=== PATIENT | male | born 1995 | race Caucasian/White ===

== ENCOUNTER 2016-10-09 20:57 | Emergency (ER) | payer SELFPAY ==
[2016-10-09] MEDS ORDERED: Sodium Chloride 0.9% 10 ML Syringe FLUSH PRN (21:15)
[2016-10-09] MEDS ORDERED: Ondansetron 4 MG/2 ML SDV IVPUSH ONE (21:15)
[2016-10-09] MEDS ORDERED: Sodium Chloride 0.9% 2.5 ML Syringe FLUSH PRN (21:15)
[2016-10-09] MEDS ORDERED: Sodium Chloride 0.9% 1,000 ML IV ONE (21:15)
[2016-10-09] MEDS ORDERED: Ketorolac 30 MG/ML SDV IVPUSH ONE (21:15)
--- NOTE | 2016-10-09 21:20 | EDM.PDOC ---
ED HPI GENERAL MEDICAL PROBLEM - General Chief Complaint: Abdominal Pain Stated Complaint: STOMACH PAIN/KIDNEY Time Seen by Provider: 10/09/16 21:04 - History of Present Illness INITIAL COMMENTS - FREE TEXT/NARRATIVE: HISTORY AND PHYSICAL: History of present illness: The patient is a 21-year-old male who presents with a one-week history of left lower abdominal pain that has been waxing and waning in intensity but has been constant and also some bilateral lower back pain over the last 4 days. Patient has a long-standing history of chronic constipation and does not go on a regular basis and has seen GI in the past and had a colonoscopy several years ago. His father has a history of Crohn's disease but he was not diagnosed with any IBS syndromes. The patient states that a week ago he was having upper respiratory symptoms and flulike symptoms including bodyaches cough runny nose and feverish feelings but did not have vomiting or diarrhea with that. The patient states he has not had a bowel movement for at least 2 days and one episode of vomiting today. Patient says he drinks a lot of caffeine and has a history of an appendectomy. Patient states he has had trouble with his kidneys in the past and says that there is some discomfort with urination but does not have any specific flank pain or upper abdominal pain. He has currently some feverish feelings but no documented fever no chills no cough no chest pain or shortness of breath. He denies any testicular pain or swelling or any hernial swellings in the groin area. Patient did not take anything for the pain or the nausea prior to coming here. The patient did take ex-lax approximately 24-36 hours ago and did not have any output. Patient denies any hematuria or frequency and denies STD risks. He states that his lower back pain is more achy in character and is not localize right or left it does not radiate to his legs and has no bowel or bladder disturbances from this Review of systems: As per history of present illness and below otherwise all systems reviewed and negative. Past medical history: As per history of present illness and as reviewed below otherwise noncontributory. Surgical history: As per history of present illness and as reviewed below otherwise noncontributory. Social history: No reported history of drug or alcohol abuse. Family history: As per history of present illness and as reviewed below otherwise noncontributory. Physical exam: General: Well-developed well-nourished man who is thin and nontoxic moves easily in ED without distress. HEENT: Atraumatic, normocephalic, pupils reactive, negative for conjunctival pallor or scleral icterus, mucous membranes moist, throat clear, neck supple, nontender, trachea midline. Lungs: Clear to auscultation, breath sounds equal bilaterally, chest nontender. Heart: S1S2, regular, negative for clicks, rubs, or JVD. Abdomen: Soft, nondistended, bowel sounds are hypoactive and there is tenderness in the left lower abdominal area without rebound or guarding. Negative for masses or hepatosplenomegaly. Negative for costovertebral tenderness. Pelvis: Stable nontender. Genitourinary: Deferred. Rectal: Deferred. Extremities: Atraumatic, negative for cords or calf pain. Neurovascular unremarkable. Neuro: Awake, alert, oriented. Cranial nerves II through XII unremarkable. Cerebellum unremarkable. Motor and sensory unremarkable throughout. Exam nonfocal. Back: There are no midline step-offs tenderness defects of the thoracic or lumbar spine no CVA tenderness and some mild paraspinal muscle tenderness to palpation bilateral lumbar areas Diagnostics: CBC CMP amylase lipase UA CT scan of the abdomen and pelvis Therapeutics: IV fluids Zofran Toradol Bentyl Patient is feeling somewhat better. I discussed with him and family at bedside all testing results including the incidental pulmonary nodules. I recommended follow up with family and possible GI specialist and I will give Bentammon for home as well as here in the ER. I've also advised patient on dietary management including avoiding caffeinated products and trying to eat more fiber foods and using [id number] MiraLAX for the next 5-7 days. Advised patient on need to return to the ER and importance of followup. Impression: Left lower abdominal pain with history of constipation stable Definitive disposition and diagnosis as appropriate pending reevaluation and review of above. abdominal Pain Score (Numeric/FACES): 5 headache Pain Score (Numeric/FACES): 8 - Related Data Allergies Allergy/AdvReac Type Severity Reaction Status Date / Time lactose Allergy Other Verified 10/09/16 21:00 Home Meds: Home Meds . [No Known Home Meds] 10/09/16 [History] ED ROS GENERAL - Review of Systems Review Of Systems: ROS reveals no pertinent complaints other than HPI. ED EXAM, GENERAL - Physical Exam Exam: See Below (See dictation) Course - Vital Signs Last Recorded V/S: Last Vital Signs Temp 37.6 C 10/09/16 21:42 Pulse 75 10/09/16 21:42 Resp 16 10/09/16 21:42 BP 101/63 10/09/16 21:42 Pulse Ox 97 10/09/16 21:42 - Orders/Labs/Meds Orders: Active Orders 24 hr Category Date Time Status Abdomen Pelvis w wo Cont [CT] Stat Exams 10/09/16 21:15 Taken Sodium Chloride 0.9% [Saline Flush] Med 10/09/16 21:15 Active 10 ml FLUSH ASDIRECTED PRN Sodium Chloride 0.9% [Saline Flush] Med 10/09/16 21:15 Active 2.5 ml FLUSH ASDIRECTED PRN Saline Lock Insert [OM.PC] Stat Oth 10/09/16 21:14 Ordered Medication Orders Sodium Chloride (Saline Flush) 10 ml FLUSH ASDIRECTED PRN PRN Reason: Keep Vein Open Sodium Chloride (Saline Flush) 2.5 ml FLUSH ASDIRECTED PRN PRN Reason: Keep Vein Open Labs: Laboratory Tests 10/09/16 10/09/16 10/09/16 Range/Units 21:05 21:05 21:26 WBC 6.09 (4.0-11.0) K/uL RBC 4.75 (4.50-5.90) M/uL Hgb 14.6 (13.0-17.0) g/dL Hct 41.5 (38.0-50.0) % MCV 87.4 (80.0-98.0) fL MCH 30.7 (27.0-32.0) pg MCHC 35.2 (31.0-37.0) g/dL RDW Std Deviation 40.3 (28.0-62.0) fl RDW Coeff of Dick 13 (11.0-15.0) % Plt Count 179 (150-400) K/uL MPV 8.90 (7.40-12.00) fL Neut % (Auto) 47.2 L (48.0-80.0) % Lymph % (Auto) 40.1 H (16.0-40.0) % [place] % (Auto) 7.1 (0.0-15.0) % Eos % (Auto) 5.3 (0.0-7.0) % Baso % (Auto) 0.3 (0.0-1.5) % Neut # 2.9 (1.4-5.7) K/uL Lymph # 2.4 (0.6-2.4) K/uL [place] # 0.4 (0.0-0.8) K/uL Eos # 0.3 (0.0-0.7) K/uL Baso # 0.0 (0.0-0.1) K/uL Nucleated RBC % 0.0 /100WBC Nucleated RBCs # 0 K/uL Sodium 142 (136-146) mmol/L Potassium 3.9 (3.5-5.1) mmol/L Chloride 106 (98-110) mmol/L Carbon Dioxide 27 (21-31) mmol/L BUN 14 (6.0-23.0) mg/dL Creatinine 1.0 (0.6-1.5) mg/dL Est Cr Clr Drug Dosing 108.09 mL/min Estimated GFR (MDRD) > 60.0 ml/min Glucose 94 (60-110) mg/dL Calcium 9.1 (8.8-10.8) mg/dL Total Bilirubin 0.6 (0.1-1.5) mg/dL AST 33 (5-40) IU/L ALT 49 (8-54) IU/L Alkaline Phosphatase 102 (40-150) Total Protein 7.1 (6.0-8.0) g/dL Albumin 4.5 (3.5-5.0) g/dL Globulin 2.6 (2.0-3.5) g/dL Albumin/Globulin Ratio 1.7 (1.3-2.8) Amylase 38 (10-90) U/L Lipase 31 (7-80) U/L Urine Color YELLOW Urine Appearance SLT CLOUDY Urine pH 8.0 (5.0-8.0) Ur Specific [place] 1.015 (1.001-1.035) Urine Protein NEGATIVE (NEGATIVE) mg/dL Urine Glucose (UA) NEGATIVE (NEGATIVE) mg/dL Urine Ketones NEGATIVE (NEGATIVE) mg/dL Urine Occult Blood NEGATIVE (NEGATIVE) Urine Nitrite NEGATIVE (NEGATIVE) Urine Bilirubin NEGATIVE (NEGATIVE) Urine Urobilinogen 0.2 (<2.0) EU/dL Ur Leukocyte Esterase TRACE (NEGATIVE) Urine RBC NONE SEEN (0-2/HPF) Urine WBC 0-2 (0-5/HPF) Ur Epithelial Cells RARE (NONE-FEW) Amorphous Sediment MODERATE (NEGATIVE) Urine Bacteria FEW (NEGATIVE) Meds: Medications Generic Name Dose Route Start Last Admin Trade Name Rocky PRN Reason Stop Dose Admin Sodium Chloride 10 ml 10/09/16 21:15 Saline Flush FLUSH ASDIRECTED PRN Keep Vein Open Sodium Chloride 2.5 ml 10/09/16 21:15 Saline Flush FLUSH ASDIRECTED PRN Keep Vein Open Discontinued Medications Generic Name Dose Route Start Last Admin Trade Name Jonyq PRN Reason Stop Dose Admin Dicyclomine HCl 10 mg 10/09/16 22:40 Bentyl PO 10/09/16 22:41 ONETIME ONE Sodium Chloride 1,000 mls @ 999 mls/hr 10/09/16 21:15 10/09/16 21:38 Normal Saline IV 10/09/16 22:15 999 mls/hr STAT ONE Administration Iopamidol 100 ml 10/09/16 21:23 Isovue Multipack-370 (76%) IVPUSH 10/09/16 21:24 ONETIME STA Ketorolac Tromethamine 30 mg 10/09/16 21:15 10/09/16 21:28 Toradol IVPUSH 10/09/16 21:16 30 mg ONETIME ONE Administration Ondansetron HCl 4 mg 10/09/16 21:15 10/09/16 21:34 Zofran IVPUSH 10/09/16 21:16 4 mg ONETIME ONE Administration Departure - Departure Time of Disposition: 22:44 Disposition: Home, Self-Care 01 Condition: good Clinical Impression: Abdominal pain Qualifiers: Abdominal location: left lower quadrant Qualified Code(s): R10.32 - Left lower quadrant pain Forms: ED Department Discharge Additional Instructions: The following information is given to patients seen in the emergency department who are being discharged to home. This information is to outline your options for follow-up care. We provide all patients seen in our emergency department with a follow-up referral. The need for follow-up, as well as the timing and circumstances, are variable depending upon the specifics of your emergency department visit. If you don't have a primary care physician on staff, we will provide you with a referral. We always advise you to contact your personal physician following an emergency department visit to inform them of the circumstance of the visit and for follow-up with them and/or the need for any referrals to a consulting specialist. The emergency department will also refer you to a specialist when appropriate. This referral assures that you have the opportunity for followup care with a specialist. All of these measure are taken in an effort to provide you with optimal care, which includes your followup. Under all circumstances we always encourage you to contact your private physician who remains a resource for coordinating your care. When calling for followup care, please make the office aware that this follow-up is from your recent emergency room visit. If for any reason you are refused follow-up, please contact the [facility] emergency department at and ask to speak to the emergency department charge nurse. [facility] Primary care- Internal Medicine and Family [address] [address] Please push hydration and avoid caffeinated products as well as fast foods and junk foods spicy and fatty foods. Please push fiber rich foods as we discussed and use Bentyl as needed for discomfort. Please call and followup with primary care for further evaluation and treatment and return to the ER as needed and as discussed. Please also use [id number] MiraLAX once a day for the next 5 days and thereafter as needed. - My Orders Last 24 Hours: My Active Orders 10/09/16 21:14 Saline Lock Insert [OM.PC] Stat 10/09/16 21:15 Abdomen Pelvis w wo Cont [CT] Stat Sodium Chloride 0.9% [Saline Flush] 10 ml FLUSH ASDIRECTED PRN Sodium Chloride 0.9% [Saline Flush] 2.5 ml FLUSH ASDIRECTED PRN - Assessment/Plan Last 24 Hours: My Active Orders 10/09/16 21:14 Saline Lock Insert [OM.PC] Stat 10/09/16 21:15 Abdomen Pelvis w wo Cont [CT] Stat Sodium Chloride 0.9% [Saline Flush] 10 ml FLUSH ASDIRECTED PRN Sodium Chloride 0.9% [Saline Flush] 2.5 ml FLUSH ASDIRECTED PRN
[2016-10-09] MEDS ORDERED: Iopamidol 755 MG/ML 500 ML Multipack Bottle IVPUSH STA (21:23)
[2016-10-09 21:39] LABS: CHLORIDE,CL 106 mmol/L (98-110); SODIUM,NA 142 mmol/L (136-146)
[2016-10-09] MEDS ORDERED: Dicyclomine 10 MG Cap PO ONE (22:40)
[2016-10-09 23:06] VITALS: BP 108/75
--- NOTE | 2016-10-12 16:46 | CT ---
EXAM DATE: 10/09/16 PATIENT'S AGE: 21 Patient: FREDY MAY Facility: [place], [place] Site . Site : 1995 Study: CT Abdomen/Pelvis [id number]/13/2017 10:11:09 PM Ordering Physician: Xochitl Lindsay Final Report: INDICATION: Left lower quadrant pain TECHNIQUE: CT abdomen and pelvis acquired without and with IV contrast. COMPARISON: None available FINDINGS: Lower chest: A 5 millimeter left lower lobe perivascular nodule on image 22, a 4 millimeter right lower lobe nodule on image 12 and a 2- 3 millimeter right lower lobe nodule on image 22, likely post inflammatory in a patient of this age. Liver: A tiny posterior right hepatic low-density lesion on image 31, too small to characterize, statistically a small cyst. Spleen: Unremarkable. Pancreas: Unremarkable. Gallbladder and bile ducts: Unremarkable. Adrenal glands: Unremarkable. Kidneys: Unremarkable. GI tract: No bowel obstruction. The appendix is not seen and there are no findings of appendicitis. No significant pericolonic changes. Vascular structures: Unremarkable. Lymph nodes: Unremarkable. Miscellaneous: Small free fluid in the posteroinferior pelvis. No free air. Pelvic Organs: Slight bladder wall prominence versus incomplete distention. Grossly unremarkable prostate. Bones: Unremarkable for age. IMPRESSION: No evidence of appendicitis, diverticulitis or bowel obstruction. Small pelvic free fluid, nonspecific. Slight bladder wall prominence versus underdistention. Correlate with urinalysis. Pulmonary nodular opacities, likely post inflammatory in a patient of this age without history of neoplasm. A 12 month followup examination could be obtained to ensure stability. Dictated by Devan Guajardo MD @ 10/09/2016 10:26:39 PM Dictated by: Devan Guajardo MD @ 10/09/2016 22:26:46 (Electronic Signature) Report Signed by Proxy and Original Signed Document filed in the Medical Record. [facility]
== END 2016-10-09 23:06 | disposition home or self-care (01) ==
LOC: MW.ED 20:57
DX: R10.32 Left lower quadrant pain (principal); M54.5 Low back pain; R05 Cough
CPT/HCPCS: 74178; 80053; 81001; 82150; 83690; 85025; 96361; 96374; 96375; 99284; A9270; J1885; J2405; J7040; Q9967

== ENCOUNTER 2017-02-22 21:20 | Emergency (ER) | payer MEDICAID ==
[2017-02-22] MEDS ORDERED: Ketorolac 30 MG/ML SDV IVPUSH ONE (21:41)
[2017-02-22] MEDS ORDERED: Sodium Chloride 0.9% 1,000 ML IV ONE (21:41)
[2017-02-22] MEDS ORDERED: Sodium Chloride 0.9% 2.5 ML Syringe FLUSH PRN (21:41)
[2017-02-22] MEDS ORDERED: Sodium Chloride 0.9% 10 ML Syringe FLUSH PRN (21:41)
[2017-02-22] MEDS ORDERED: Ondansetron 4 MG/2 ML SDV IVPUSH ONE (21:41)
--- NOTE | 2017-02-22 21:46 | EDM.PDOC ---
ED HPI GENERAL MEDICAL PROBLEM - General Chief Complaint: General Stated Complaint: POSSIBLE KIDNEY STONES/VOMITING Time Seen by Provider: 02/22/17 21:26 - History of Present Illness INITIAL COMMENTS - FREE TEXT/NARRATIVE: HISTORY AND PHYSICAL: History of present illness: The patient is a 21-year-old male who presents with right lower quadrant discomfort which is improved after receiving Ultram from one of our local clinics a few days ago but presents tonight with vomiting and feeling like he is dehydrated. According to the patient he was seen at the outside clinic several days ago with left lower quadrant pain and they did an x-ray and a urine test and said that he might be passing a kidney stone. The patient has no history of kidney stones. The patient was seen by me in this emergency department October 13 of this year and presented with similar complaints of left lower quadrant pain and had a workup consisting of labs and a CAT scan. The CAT scan results were reviewed by me which revealed no evidence of any bowel disorders and no renal abnormalities or kidney stones. The patient states that the Ultram is controlling his pain and he is not here for that he is more here because of concern about dehydration and vomiting. He has had no fever or flank pain no chest pain or shortness of breath. When seen here back in September the patient had issues with constipation and a history of issues as well as a family history of Crohn's but he does not complain of constipation currently nor diarrhea. He's having bowel movements without issues. Review of systems: As per history of present illness and below otherwise all systems reviewed and negative. Past medical history: As per history of present illness and as reviewed below otherwise noncontributory. Surgical history: As per history of present illness and as reviewed below otherwise noncontributory. Social history: No reported history of drug or alcohol abuse. Family history: As per history of present illness and as reviewed below otherwise noncontributory. Physical exam: General: Well-developed well-nourished man who is nontoxic in clearly and easily in the ED. Vital signs have been reviewed by me HEENT: Atraumatic, normocephalic, pupils reactive, negative for conjunctival pallor or scleral icterus, mucous membranes tacky, throat clear, neck supple, nontender, trachea midline. Lungs: Clear to auscultation, breath sounds equal bilaterally, chest nontender. Heart: S1S2, regular, negative for clicks, rubs, or JVD. Abdomen: Soft, nondistended, nontender. Bowel sounds are very hypoactive but there is no rebound guarding or tenderness on palpation Negative for masses or hepatosplenomegaly. Negative for costovertebral tenderness. Pelvis: Stable nontender. Genitourinary: Deferred. Rectal: Deferred. Extremities: Atraumatic, negative for cords or calf pain. Neurovascular unremarkable. Neuro: Awake, alert, oriented. Cranial nerves II through XII unremarkable. Cerebellum unremarkable. Motor and sensory unremarkable throughout. Exam nonfocal. Diagnostics CBC CMP UA urine culture if indicated Therapeutics: IV fluids Zofran Toradol Patient feels improved after IV fluids and I reviewed all testing results with him. At this point I will not proceed to get another CAT scan as he has just had one recently in September and he clearly is not exhibiting definitive evidence of a kidney stone. I've advised him on reasons to return to the ED. He states he has a prescription for Zofran as well as the Ultram. Impression: Nausea and vomiting, left lower abdominal pain stable Definitive disposition and diagnosis as appropriate pending reevaluation and review of above. Bilateral Lower Abdomen Pain Score (Numeric/FACES): 5 - Related Data Allergies Allergy/AdvReac Type Severity Reaction Status Date / Time lactose Allergy Other Verified 02/22/17 21:25 Home Meds: Home Meds traMADol [Ultram] 50 mg PO Q4HR PRN 02/22/17 [History] Past Medical History HEENT History: Reports: None Cardiovascular History: Reports: None Respiratory History: Reports: None Gastrointestinal History: Reports: GERD Genitourinary History: Reports: None Musculoskeletal History: Reports: None Neurological History: Reports: None Psychiatric History: Reports: None Endocrine/Metabolic History: Reports: None Hematologic History: Reports: None Immunologic History: Reports: None Oncologic (Cancer) History: Reports: None Dermatologic History: Reports: None - Infectious Disease History Infectious Disease History: Reports: None - Past Surgical History Head Surgeries/Procedures: Reports: None HEENT Surgical History: Reports: None Cardiovascular Surgical History: Reports: None GI Surgical History: Reports: Appendectomy, Hernia, Inguinal Male Surgical History: Reports: None Musculoskeletal Surgical History: Reports: None Social & Family History - Family History Family Medical History: Noncontributory Cardiac: Reports: Other (See Below) Other Cardiac Family History: heart problems Respiratory: Reports: None GI: Reports: None, Other (See Below) Other GI Family History: chrons - Tobacco Use Smoking Status *Q: Current Every Day Smoker Years of Tobacco use: 3 Packs/Tins Daily: 0.5 - Caffeine Use Caffeine Use: Reports: Soda - Recreational Drug Use Recreational Drug Use: No ED ROS GENERAL - Review of Systems Review Of Systems: ROS reveals no pertinent complaints other than HPI. ED EXAM, GENERAL - Physical Exam Exam: See Below (See dictation) Course - Vital Signs Last Recorded V/S: Last Vital Signs Temp 35.9 C 02/22/17 21:27 Pulse 71 02/22/17 21:27 Resp 17 02/22/17 21:27 BP 133/84 02/22/17 21:27 Pulse Ox 100 02/22/17 21:27 - Orders/Labs/Meds Orders: Active Orders 24 hr Category Date Time Status Sodium Chloride 0.9% [Saline Flush] Med 02/22/17 21:41 Active 10 ml FLUSH ASDIRECTED PRN Sodium Chloride 0.9% [Saline Flush] Med 02/22/17 21:41 Active 2.5 ml FLUSH ASDIRECTED PRN Saline Lock Insert [OM.PC] Stat Oth 02/22/17 21:40 Ordered Medication Orders Sodium Chloride (Saline Flush) 10 ml FLUSH ASDIRECTED PRN PRN Reason: Keep Vein Open Sodium Chloride (Saline Flush) 2.5 ml FLUSH ASDIRECTED PRN PRN Reason: Keep Vein Open Labs: Laboratory Tests 02/22/17 02/22/17 02/22/17 Range/Units 21:42 21:42 22:12 WBC 8.18 (4.0-11.0) K/uL RBC 4.98 (4.50-5.90) M/uL Hgb 15.4 (13.0-17.0) g/dL Hct 43.6 (38.0-50.0) % MCV 87.6 (80.0-98.0) fL MCH 30.9 (27.0-32.0) pg MCHC 35.3 (31.0-37.0) g/dL RDW Std Deviation 39.0 (28.0-62.0) fl RDW Coeff of Dick 12 (11.0-15.0) % Plt Count 187 (150-400) K/uL MPV 8.90 (7.40-12.00) fL Neut % (Auto) 57.8 (48.0-80.0) % Lymph % (Auto) 28.6 (16.0-40.0) % Arroyo % (Auto) 9.0 (0.0-15.0) % Eos % (Auto) 4.2 (0.0-7.0) % Baso % (Auto) 0.4 (0.0-1.5) % Neut # (Auto) 4.7 (1.4-5.7) K/uL Lymph # (Auto) 2.3 (0.6-2.4) K/uL Arroyo # (Auto) 0.7 (0.0-0.8) K/uL Eos # (Auto) 0.3 (0.0-0.7) K/uL Baso # (Auto) 0.0 (0.0-0.1) K/uL Nucleated RBC % 0.0 /100WBC Nucleated RBCs # 0 K/uL Sodium 140 (136-146) mmol/L Potassium 3.4 L (3.5-5.1) mmol/L Chloride 100 (98-110) mmol/L Carbon Dioxide 29 (21-31) mmol/L BUN 10 (6.0-23.0) mg/dL Creatinine 1.0 (0.6-1.5) mg/dL Est Cr Clr Drug Dosing 97.51 mL/min Estimated GFR (MDRD) > 60.0 ml/min Glucose 87 (60-110) mg/dL Calcium 9.5 (8.8-10.8) mg/dL Total Bilirubin 0.8 (0.1-1.5) mg/dL AST 24 (5-40) IU/L ALT 21 (8-54) IU/L Alkaline Phosphatase 100 (40-150) Total Protein 7.4 (6.0-8.0) g/dL Albumin 4.8 (3.5-5.0) g/dL Globulin 2.6 (2.0-3.5) g/dL Albumin/Globulin Ratio 1.8 (1.3-2.8) Urine Color YELLOW Urine Appearance CLEAR Urine pH 6.0 (5.0-8.0) Ur Specific Weare 1.025 (1.001-1.035) Urine Protein NEGATIVE (NEGATIVE) mg/dL Urine Glucose (UA) NEGATIVE (NEGATIVE) mg/dL Urine Ketones NEGATIVE (NEGATIVE) mg/dL Urine Occult Blood NEGATIVE (NEGATIVE) Urine Nitrite NEGATIVE (NEGATIVE) Urine Bilirubin NEGATIVE (NEGATIVE) Urine Urobilinogen 0.2 (<2.0) EU/dL Ur Leukocyte Esterase NEGATIVE (NEGATIVE) Urine RBC 0-1 (0-2/HPF) Urine WBC 1-4 (0-5/HPF) Ur Epithelial Cells RARE (NONE-FEW) Urine Bacteria RARE (NEGATIVE) Meds: Medications Generic Name Dose Route Start Last Admin Trade Name Freq PRN Reason Stop Dose Admin Sodium Chloride 10 ml 02/22/17 21:41 Saline Flush FLUSH ASDIRECTED PRN Keep Vein Open Sodium Chloride 2.5 ml 02/22/17 21:41 Saline Flush FLUSH ASDIRECTED PRN Keep Vein Open Discontinued Medications Generic Name Dose Route Start Last Admin Trade Name Freq PRN Reason Stop Dose Admin Sodium Chloride 1,000 mls @ 999 mls/hr 02/22/17 21:41 02/22/17 21:48 Normal Saline IV 02/22/17 22:41 999 mls/hr STAT ONE Administration Ketorolac Tromethamine 30 mg 02/22/17 21:41 02/22/17 21:50 Toradol IVPUSH 02/22/17 21:42 30 mg ONETIME ONE Administration Ondansetron HCl 4 mg 02/22/17 21:41 02/22/17 21:49 Zofran IVPUSH 02/22/17 21:42 4 mg ONETIME ONE Administration Departure - Departure Time of Disposition: 23:20 Disposition: Home, Self-Care 01 Condition: Good Clinical Impression: Recurrent left lower quadrant abdominal pain Vomiting Qualifiers: Vomiting type: unspecified Vomiting Intractability: non-intractable Nausea presence: with nausea Qualified Code(s): R11.2 - Nausea with vomiting, unspecified - Discharge Information Forms: ED Department Discharge Additional Instructions: The following information is given to patients seen in the emergency department who are being discharged to home. This information is to outline your options for follow-up care. We provide all patients seen in our emergency department with a follow-up referral. The need for follow-up, as well as the timing and circumstances, are variable depending upon the specifics of your emergency department visit. If you don't have a primary care physician on staff, we will provide you with a referral. We always advise you to contact your personal physician following an emergency department visit to inform them of the circumstance of the visit and for follow-up with them and/or the need for any referrals to a consulting specialist. The emergency department will also refer you to a specialist when appropriate. This referral assures that you have the opportunity for followup care with a specialist. All of these measure are taken in an effort to provide you with optimal care, which includes your followup. Under all circumstances we always encourage you to contact your private physician who remains a resource for coordinating your care. When calling for followup care, please make the office aware that this follow-up is from your recent emergency room visit. If for any reason you are refused follow-up, please contact the [facility] emergency department at and ask to speak to the emergency department charge nurse. [facility] Primary care- Internal Medicine [place] [address] Please use of Zofran and Ultram you have been prescribed from the clinic as needed and please call and schedule follow-up appointment with one of our providers for further care and evaluation of these symptoms. Return to the ER as needed and as discussed. Please push hydration avoid caffeinated products and bland diet. - My Orders Last 24 Hours: My Active Orders 02/22/17 21:40 Saline Lock Insert [OM.PC] Stat 02/22/17 21:41 Sodium Chloride 0.9% [Saline Flush] 10 ml FLUSH ASDIRECTED PRN Sodium Chloride 0.9% [Saline Flush] 2.5 ml FLUSH ASDIRECTED PRN - Assessment/Plan Last 24 Hours: My Active Orders 02/22/17 21:40 Saline Lock Insert [OM.PC] Stat 02/22/17 21:41 Sodium Chloride 0.9% [Saline Flush] 10 ml FLUSH ASDIRECTED PRN Sodium Chloride 0.9% [Saline Flush] 2.5 ml FLUSH ASDIRECTED PRN
[2017-02-22 22:18] LABS: CHLORIDE,CL 100 mmol/L (98-110); SODIUM,NA 140 mmol/L (136-146)
[2017-02-22 23:33] VITALS: BP 99/57
== END 2017-02-22 23:43 | disposition home or self-care (01) ==
LOC: MW.ED 21:20
DX: R10.32 Left lower quadrant pain (principal); R11.2 Nausea with vomiting, unspecified; K21.9 Gastro-esophageal reflux disease without esophagitis; F17.210 Nicotine dependence, cigarettes, uncomplicated; Z90.49 Acquired absence of other specified parts of digestive tract; Z98.890 Other specified postprocedural states; Z88.8 Allergy status to other drugs, medicaments and biological substances
CPT/HCPCS: 36415; 80053; 81001; 85025; 96361; 96374; 96375; 99283; J1885; J2405; J7040

== ENCOUNTER 2017-02-24 22:06 | Emergency (ER) | payer MEDICAID ==
[2017-02-24] MEDS ORDERED: Sodium Chloride 0.9% 1,000 ML IV ONE (22:24)
[2017-02-24] MEDS ORDERED: Ondansetron 4 MG/2 ML SDV IVPUSH ONE (22:24)
[2017-02-24] MEDS ORDERED: Sodium Chloride 0.9% 10 ML Syringe FLUSH PRN (22:24)
[2017-02-24] MEDS ORDERED: Sodium Chloride 0.9% 2.5 ML Syringe FLUSH PRN (22:24)
[2017-02-24] MEDS ORDERED: Ketorolac 30 MG/ML SDV IVPUSH ONE (22:29)
--- NOTE | 2017-02-24 22:29 | EDM.PDOC ---
ED HPI GENERAL MEDICAL PROBLEM - General Chief Complaint: Gastrointestinal Problem Stated Complaint: PT VOMITING Time Seen by Provider: 02/24/17 22:15 - History of Present Illness INITIAL COMMENTS - FREE TEXT/NARRATIVE: HISTORY AND PHYSICAL: History of present illness: The patient is a 21-year-old male who was seen here 2 days ago with complaints of left lower abdominal pain and vomiting for which she had been seen in an outside clinic several days earlier and told he might have a kidney stone. When he presented here 2 days ago he wasn't worried about the discomfort as he was taking Ultram and that was helping he was more worried about vomiting as he has had several episodes of blood he might be dehydrated. He was evaluated at that time with labs and after IV fluids felt improved and had a prescription already for Zofran from the clinic use and also schedule a follow-up appointment. I saw this patient back in September for left lower abdominal pain and constipation issues and at that time he had labs and a CAT scan. The patient has a history of family members with Crohn's and there was some concern about that but he did not follow-up at that time. Today he presents with his family saying that he has just been very lifeless at home and sleeping all the time and he is intermittently vomiting despite using the Zofran. He still has the left lower abdominal pain and that has not changed but he has been using Ultram for it. On my evaluation he only complains of feeling somewhat dehydrated and having decreased urine output as long with the vomiting but not of pain. He has no chest pain shortness of breath headache neck pain back pain or any other systemic complaints. He has not had a fever with this. The mother is at bedside and says that she was told by the nurse in the clinic that ED had recurrence of his vomiting that he should come to the ER to get a CAT scan of his abdomen and pelvis. She is very adamant about having that happen today. Review of systems: As per history of present illness and below otherwise all systems reviewed and negative. Past medical history: As per history of present illness and as reviewed below otherwise noncontributory. Surgical history: As per history of present illness and as reviewed below otherwise noncontributory. Social history: No reported history of drug or alcohol abuse. Family history: As per history of present illness and as reviewed below otherwise noncontributory. Physical exam: Gen.: Well-developed well-nourished man who is thin and nontoxic and vital signs have been reviewed by me. He is cooperative on my evaluation HEENT: Atraumatic, normocephalic, pupils reactive, negative for conjunctival pallor or scleral icterus, mucous membranes slightly tacky, throat clear, neck supple, nontender, trachea midline. Lungs: Clear to auscultation, breath sounds equal bilaterally, chest nontender. Heart: S1S2, regular rate and rhythm no overt murmurs Abdomen: Soft, nondistended, there is some diffuse abdominal tenderness on palpation but does not localize right or left upper or lower on my evaluation. Negative for masses or hepatosplenomegaly. Hypoactive bowel sounds. There is no rebound guarding or tympany on percussion Pelvis: Stable nontender. Genitourinary: Deferred. Rectal: Deferred. Extremities: Atraumatic, negative for cords or calf pain. Neurovascular unremarkable. Neuro: Awake, alert, oriented. Cranial nerves II through XII unremarkable. Cerebellum unremarkable. Motor and sensory unremarkable throughout. Exam nonfocal. Diagnostics: CBC CMP amylase lipase lactic acid UA UDS CT scan of the abdomen and pelvis Therapeutics: IV fluids Zofran Toradol I did discuss with the patient and family at bedside that I will be compliant with re-performing a CAT scan tonight but cautioned him as he also had a CAT scan 4 months ago and he needs to be aware of the radiation exposure on a long- term basis. They all state awareness. I discussed with the patient and family at bedside at length all testing care results and need for keeping the follow-up appointment in the surgery clinic on Sunday. I've advised starting [id number] Miralax after his nausea improves and continuing the Zofran they have at home. I've also prescribed Bentyl that they can start tomorrow to assist with her the cramping. I advised clear liquid diet and I will also give them phenergan via [facility] Meds to take if the Zofran is not working. Advised on reasons to return to the ED. Impression: Nausea and vomiting, focal jejunal gastroenteritis and fecal loading Definitive disposition and diagnosis as appropriate pending reevaluation and review of above. Left Middle Abdomen Pain Score (Numeric/FACES): 6 - Related Data Allergies Allergy/AdvReac Type Severity Reaction Status Date / Time lactose Allergy Diarrhea Verified 02/24/17 22:16 Home Meds: Home Meds traMADol [Ultram] 50 mg PO Q6HR PRN 02/22/17 [History] Ondansetron [Zofran] 4 mg PO Q8H PRN 02/24/17 [History] Past Medical History HEENT History: Reports: None Cardiovascular History: Reports: None Respiratory History: Reports: None Gastrointestinal History: Reports: GERD Genitourinary History: Reports: None Musculoskeletal History: Reports: None Neurological History: Reports: None Psychiatric History: Reports: None Endocrine/Metabolic History: Reports: None Hematologic History: Reports: None Immunologic History: Reports: None Oncologic (Cancer) History: Reports: None Dermatologic History: Reports: None - Infectious Disease History Infectious Disease History: Reports: None - Past Surgical History Head Surgeries/Procedures: Reports: None HEENT Surgical History: Reports: None Cardiovascular Surgical History: Reports: None GI Surgical History: Reports: Appendectomy, Hernia, Inguinal Male Surgical History: Reports: None Musculoskeletal Surgical History: Reports: None Social & Family History - Family History Family Medical History: Noncontributory Cardiac: Reports: Other (See Below) Other Cardiac Family History: heart problems Respiratory: Reports: None GI: Reports: None, Other (See Below) Other GI Family History: chrons - Tobacco Use Smoking Status *Q: Current Every Day Smoker Years of Tobacco use: 3 Packs/Tins Daily: 0.5 - Caffeine Use Caffeine Use: Reports: Soda - Recreational Drug Use Recreational Drug Use: No ED ROS GENERAL - Review of Systems Review Of Systems: ROS reveals no pertinent complaints other than HPI. ED EXAM, GENERAL - Physical Exam Exam: See Below (see dictation) Course - Vital Signs Last Recorded V/S: Last Vital Signs Temp 36.6 C 02/24/17 22:12 Pulse 63 02/24/17 22:12 Resp 18 02/24/17 22:12 BP 117/80 02/24/17 22:12 Pulse Ox 98 02/24/17 22:12 - Orders/Labs/Meds Orders: Active Orders 24 hr Category Date Time Status Blood Glucose Check, Bedside [RC] ONETIME Care 02/24/17 22:24 Active Abdomen Pelvis w Cont [CT] Stat Exams 02/24/17 22:24 Ordered Sodium Chloride 0.9% [Saline Flush] Med 02/24/17 22:24 Active 10 ml FLUSH ASDIRECTED PRN Sodium Chloride 0.9% [Saline Flush] Med 02/24/17 22:24 Active 2.5 ml FLUSH ASDIRECTED PRN Saline Lock Insert [OM.PC] Stat Oth 02/24/17 22:24 Ordered Medication Orders Sodium Chloride (Saline Flush) 10 ml FLUSH ASDIRECTED PRN PRN Reason: Keep Vein Open Last Admin: 02/24/17 22:51 Dose: 10 ml Sodium Chloride (Saline Flush) 2.5 ml FLUSH ASDIRECTED PRN PRN Reason: Keep Vein Open Last Admin: 02/24/17 22:53 Dose: 2.5 ml Labs: Laboratory Tests 02/24/17 02/24/17 02/24/17 Range/Units 22:08 22:08 22:08 WBC 6.34 (4.0-11.0) K/uL RBC 4.72 (4.50-5.90) M/uL Hgb 14.7 (13.0-17.0) g/dL Hct 41.4 (38.0-50.0) % MCV 87.7 (80.0-98.0) fL MCH 31.1 (27.0-32.0) pg MCHC 35.5 (31.0-37.0) g/dL RDW Std Deviation 38.2 (28.0-62.0) fl RDW Coeff of Dick 12 (11.0-15.0) % Plt Count 179 (150-400) K/uL MPV 9.00 (7.40-12.00) fL Neut % (Auto) 55.6 (48.0-80.0) % Lymph % (Auto) 31.1 (16.0-40.0) % [place] % (Auto) 8.5 (0.0-15.0) % Eos % (Auto) 4.3 (0.0-7.0) % Baso % (Auto) 0.5 (0.0-1.5) % Neut # (Auto) 3.5 (1.4-5.7) K/uL Lymph # (Auto) 2.0 (0.6-2.4) K/uL [place] # (Auto) 0.5 (0.0-0.8) K/uL Eos # (Auto) 0.3 (0.0-0.7) K/uL Baso # (Auto) 0.0 (0.0-0.1) K/uL Nucleated RBC % 0.0 /100WBC Nucleated RBCs # 0 K/uL Lactate 1.0 (0.20-2.00) mmol/L Sodium 137 (136-146) mmol/L Potassium 3.9 (3.5-5.1) mmol/L Chloride 99 (98-110) mmol/L Carbon Dioxide 31 (21-31) mmol/L BUN 10 (6.0-23.0) mg/dL Creatinine 1.2 (0.6-1.5) mg/dL Est Cr Clr Drug Dosing 81.12 mL/min Estimated GFR (MDRD) > 60.0 ml/min Glucose 121 H (60-110) mg/dL POC Glucose (60-110) mg/dL Calcium 9.2 (8.8-10.8) mg/dL Total Bilirubin 0.7 (0.1-1.5) mg/dL AST 20 (5-40) IU/L ALT 17 (8-54) IU/L Alkaline Phosphatase 91 (40-150) Total Protein 7.1 (6.0-8.0) g/dL Albumin 4.6 (3.5-5.0) g/dL Globulin 2.5 (2.0-3.5) g/dL Albumin/Globulin Ratio 1.8 (1.3-2.8) Amylase 59 (10-90) U/L Lipase 70 (7-80) U/L Urine Color Urine Appearance Urine pH (5.0-8.0) Ur Specific Hope (1.001-1.035) Urine Protein (NEGATIVE) mg/dL Urine Glucose (UA) (NEGATIVE) mg/dL Urine Ketones (NEGATIVE) mg/dL Urine Occult Blood (NEGATIVE) Urine Nitrite (NEGATIVE) Urine Bilirubin (NEGATIVE) Urine Urobilinogen (<2.0) EU/dL Ur Leukocyte Esterase (NEGATIVE) Urine RBC (0-2/HPF) Urine WBC (0-5/HPF) Ur Epithelial Cells (NONE-FEW) Urine Bacteria (NEGATIVE) Urine Opiates Screen (NEGATIVE) Ur Oxycodone Screen (NEGATIVE) Urine Methadone Screen (NEGATIVE) Ur Barbiturates Screen (NEGATIVE) Ur Phencyclidine Scrn (NEGATIVE) Ur Amphetamine Screen (NEGATIVE) U Methamphetamines Scrn (NEGATIVE) U Benzodiazepines Scrn (NEGATIVE) U Cocaine Metab Screen (NEGATIVE) U Marijuana (THC) Screen (NEGATIVE) 02/24/17 02/24/17 02/24/17 Range/Units 22:41 22:41 22:49 WBC (4.0-11.0) K/uL RBC (4.50-5.90) M/uL Hgb (13.0-17.0) g/dL Hct (38.0-50.0) % MCV (80.0-98.0) fL MCH (27.0-32.0) pg MCHC (31.0-37.0) g/dL RDW Std Deviation (28.0-62.0) fl RDW Coeff of Dick (11.0-15.0) % Plt Count (150-400) K/uL MPV (7.40-12.00) fL Neut % (Auto) (48.0-80.0) % Lymph % (Auto) (16.0-40.0) % [place] % (Auto) (0.0-15.0) % Eos % (Auto) (0.0-7.0) % Baso % (Auto) (0.0-1.5) % Neut # (Auto) (1.4-5.7) K/uL Lymph # (Auto) (0.6-2.4) K/uL [place] # (Auto) (0.0-0.8) K/uL Eos # (Auto) (0.0-0.7) K/uL Baso # (Auto) (0.0-0.1) K/uL Nucleated RBC % /100WBC Nucleated RBCs # K/uL Lactate (0.20-2.00) mmol/L Sodium (136-146) mmol/L Potassium (3.5-5.1) mmol/L Chloride (98-110) mmol/L Carbon Dioxide (21-31) mmol/L BUN (6.0-23.0) mg/dL Creatinine (0.6-1.5) mg/dL Est Cr Clr Drug Dosing mL/min Estimated GFR (MDRD) ml/min Glucose (60-110) mg/dL POC Glucose 107 (60-110) mg/dL Calcium (8.8-10.8) mg/dL Total Bilirubin (0.1-1.5) mg/dL AST (5-40) IU/L ALT (8-54) IU/L Alkaline Phosphatase (40-150) Total Protein (6.0-8.0) g/dL Albumin (3.5-5.0) g/dL Globulin (2.0-3.5) g/dL Albumin/Globulin Ratio (1.3-2.8) Amylase (10-90) U/L Lipase (7-80) U/L Urine Color YELLOW Urine Appearance CLEAR Urine pH 6.0 (5.0-8.0) Ur Specific Hope 1.020 (1.001-1.035) Urine Protein NEGATIVE (NEGATIVE) mg/dL Urine Glucose (UA) NEGATIVE (NEGATIVE) mg/dL Urine Ketones NEGATIVE (NEGATIVE) mg/dL Urine Occult Blood NEGATIVE (NEGATIVE) Urine Nitrite NEGATIVE (NEGATIVE) Urine Bilirubin NEGATIVE (NEGATIVE) Urine Urobilinogen 0.2 (<2.0) EU/dL Ur Leukocyte Esterase TRACE (NEGATIVE) Urine RBC NONE SEEN (0-2/HPF) Urine WBC 1-3 (0-5/HPF) Ur Epithelial Cells RARE (NONE-FEW) Urine Bacteria FEW (NEGATIVE) Urine Opiates Screen NEGATIVE (NEGATIVE) Ur Oxycodone Screen NEGATIVE (NEGATIVE) Urine Methadone Screen NEGATIVE (NEGATIVE) Ur Barbiturates Screen NEGATIVE (NEGATIVE) Ur Phencyclidine Scrn NEGATIVE (NEGATIVE) Ur Amphetamine Screen NEGATIVE (NEGATIVE) U Methamphetamines Scrn NEGATIVE (NEGATIVE) U Benzodiazepines Scrn NEGATIVE (NEGATIVE) U Cocaine Metab Screen NEGATIVE (NEGATIVE) U Marijuana (THC) Screen POSITIVE (NEGATIVE) Meds: Medications Generic Name Dose Route Start Last Admin Trade Name Freq PRN Reason Stop Dose Admin Sodium Chloride 10 ml 02/24/17 22:24 02/24/17 22:51 Saline Flush FLUSH 10 ml ASDIRECTED PRN Administration Keep Vein Open Sodium Chloride 2.5 ml 02/24/17 22:24 02/24/17 22:53 Saline Flush FLUSH 2.5 ml ASDIRECTED PRN Administration Keep Vein Open Discontinued Medications Generic Name Dose Route Start Last Admin Trade Name Freq PRN Reason Stop Dose Admin Sodium Chloride 1,000 mls @ 999 mls/hr 02/24/17 22:24 02/24/17 22:51 Normal Saline IV 02/24/17 23:24 999 mls/hr STAT ONE Administration Iopamidol 100 ml 02/24/17 23:40 Isovue Multipack-370 (76%) IVPUSH 02/24/17 23:41 ONETIME STA Ketorolac Tromethamine 30 mg 02/24/17 22:29 02/24/17 23:00 Toradol IVPUSH 02/24/17 22:30 30 mg ONETIME ONE Administration Ondansetron HCl 4 mg 02/24/17 22:24 02/24/17 22:52 Zofran IVPUSH 02/24/17 22:25 4 mg ONETIME ONE Administration Ondansetron HCl 4 mg 02/25/17 01:09 Zofran IVPUSH 02/25/17 01:10 ONETIME ONE Departure - Departure Time of Disposition: 01:13 Disposition: Home, Self-Care 01 Condition: Good Clinical Impression: Vomiting, Gastroenteritis Abdominal pain Qualifiers: Abdominal location: generalized Qualified Code(s): R10.84 - Generalized abdominal pain - Discharge Information Forms: ED Department Discharge Additional Instructions: The following information is given to patients seen in the emergency department who are being discharged to home. This information is to outline your options for follow-up care. We provide all patients seen in our emergency department with a follow-up referral. The need for follow-up, as well as the timing and circumstances, are variable depending upon the specifics of your emergency department visit. If you don't have a primary care physician on staff, we will provide you with a referral. We always advise you to contact your personal physician following an emergency department visit to inform them of the circumstance of the visit and for follow-up with them and/or the need for any referrals to a consulting specialist. The emergency department will also refer you to a specialist when appropriate. This referral assures that you have the opportunity for followup care with a specialist. All of these measure are taken in an effort to provide you with optimal care, which includes your followup. Under all circumstances we always encourage you to contact your private physician who remains a resource for coordinating your care. When calling for followup care, please make the office aware that this follow-up is from your recent emergency room visit. If for any reason you are refused follow-up, please contact the [facility] emergency department at and ask to speak to the emergency department charge nurse. [facility] Primary [facility]- [facility] [address], [place] [address] [facility] [address] [place] [address] [address] [place] [address] Please keep your clinic appointment on Sunday as scheduled and continue to use the Zofran you have and add the Phenergan you have been given today for nausea and vomiting. You can continue to use the Ultram that you have or you can add the Bentyl that was prescribed today. These try to push clear liquids diet and fluids and bland bites. Return to ER as needed and as discussed. Start to use Miralax as we discussed once the nausea improves - My Orders Last 24 Hours: My Active Orders 02/24/17 22:24 Blood Glucose Check, Bedside [RC] ONETIME Abdomen Pelvis w Cont [CT] Stat Sodium Chloride 0.9% [Saline Flush] 10 ml FLUSH ASDIRECTED PRN Sodium Chloride 0.9% [Saline Flush] 2.5 ml FLUSH ASDIRECTED PRN Saline Lock Insert [OM.PC] Stat - Assessment/Plan Last 24 Hours: My Active Orders 02/24/17 22:24 Blood Glucose Check, Bedside [RC] ONETIME Abdomen Pelvis w Cont [CT] Stat Sodium Chloride 0.9% [Saline Flush] 10 ml FLUSH ASDIRECTED PRN Sodium Chloride 0.9% [Saline Flush] 2.5 ml FLUSH ASDIRECTED PRN Saline Lock Insert [OM.PC] Stat
[2017-02-24 23:21] LABS: CHLORIDE,CL 99 mmol/L (98-110); SODIUM,NA 137 mmol/L (136-146)
[2017-02-24] MEDS ORDERED: Iopamidol 755 MG/ML 500 ML Multipack Bottle IVPUSH STA (23:40)
[2017-02-25] MEDS ORDERED: Ondansetron 4 MG/2 ML SDV IVPUSH ONE (01:09)
[2017-02-25 01:50] VITALS: BP 104/65
--- NOTE | 2017-02-26 13:37 | CT ---
EXAM DATE: 02/24/17 PATIENT'S AGE: 21 Patient: FREDY MAY Facility: [place], [place] Site . Site : 1995 Study: CT Abdomen/Pelvis [id number]/30/2017 12:19:48 AM Ordering Physician: Xochitl Final Report: INDICATION: Abdominal pain and vomiting TECHNIQUE: CT abdomen and pelvis acquired with IV contrast. COMPARISON: None FINDINGS: Lower chest: Unremarkable. Liver: Unremarkable. Spleen: Unremarkable. Pancreas: Unremarkable. Gallbladder and bile ducts: Unremarkable. Kidneys: Unremarkable. Adrenal glands: Unremarkable. GI tract: Diffuse colonic fecal retention. Fluid-filled small bowel loops with mild thickening of the proximal jejunum. Foreign gastroenteritis clinically. The appendix is not definitively demonstrated. Vascular structures: Unremarkable. Lymph nodes: Unremarkable. Miscellaneous: Unremarkable. No free air. Small amount of free fluid in the pelvis. Pelvic Organs: Unremarkable. Bones: Unremarkable for age. IMPRESSION: Fluid-filled small bowel loops with mild thickening of the proximal jejunal loops. Correlate with gastroenteritis clinically. Diffuse colonic fecal retention. The appendix is not visualized. Dictated by Holger Ramsay MD @ 02/25/2017 12:28:13 AM Dictated by: Holger Ramsay MD @ 02/25/2017 00:28:22 (Electronic Signature) Report Signed by Proxy. [facility]
== END 2017-02-25 01:51 | disposition home or self-care (01) ==
LOC: MW.ED 22:06
DX: K52.9 Noninfective gastroenteritis and colitis, unspecified (principal); K21.9 Gastro-esophageal reflux disease without esophagitis; F17.210 Nicotine dependence, cigarettes, uncomplicated; Z91.011 Allergy to milk products; Z90.49 Acquired absence of other specified parts of digestive tract
CPT/HCPCS: 36415; 74177; 80053; 80305; 81001; 82150; 82962; 83605; 83690; 85025; 96361; 96374; 96375; 96376; 99284; J1885; J2405; J7040; Q9967; 99283